=== PATIENT | male | born 1950 | race Two or more races ===

== ENCOUNTER → 2020-06-27 | Outpatient (CLI) | payer OTHER ==
[~2020-06-27] MED LIST: AMLODIPINE BESY10 MG PO; ATORVASTATIN CA10 MG PO; PLAVIX75 MG PO; TAMS0.4C PO; ZESTRIL20 MG PO
== END | disposition home or self-care (01) ==
LOC: SONOGRAMA 07:23 → MAMO-SONO 08:15
PROVIDERS: ATTEND Specialist
DX: K40.90 Unilateral inguinal hernia, without obstruction or gangrene, not specified as recurrent (principal)

== ENCOUNTER 2020-08-07 04:50 | Day surgery (SDC) | payer OTHER | END 2020-08-07 12:55 | disposition home or self-care (01) | LOC: CIR.AMB 04:50 | PROVIDERS: ATTEND Specialist | DX: K40.90 Unilateral inguinal hernia, without obstruction or gangrene, not specified as recurrent (principal); Z20.822 Contact with and (suspected) exposure to COVID-19 ==